=== PATIENT | male | born 1955 | race Caucasian/White ===

== ENCOUNTER → 2018-12-20 | Outpatient (CLI) | payer OTHER ==
[~2018-12-20] MED LIST: No meds per pt.
== END | disposition home or self-care (01) ==
LOC: STAR 14:42
PROVIDERS: ATTEND Thoracic Surgery (Cardiothoracic Vascular Surgery)
DX: Z01.818 Encounter for other preprocedural examination (principal); K40.90 Unilateral inguinal hernia, without obstruction or gangrene, not specified as recurrent; R00.1 Bradycardia, unspecified; I51.7 Cardiomegaly
CPT/HCPCS: 93005

== ENCOUNTER 2018-12-26 09:43 | Day surgery (SDC) | payer OTHER ==
[2018-12-20 14:40] VITALS: BP 139/84
[~2018-12-26] VITALS: Ht 171.4 cm; Wt 75.8 kg
[~2018-12-26 09:43] MED LIST changes: +BUPIVACAINE/PF 0.5% ONE; +EPINEPHRINE 1 MG/ML, 1ML ONE
[2018-12-26] MEDS ORDERED: LACTATED RINGERS 1,000 ML IV SCH ×2 (10:05→12:36)
[2018-12-26] MEDS ORDERED: FENTANYL PF 250 MCG/5ML ONE (11:17)
[2018-12-26] MEDS ORDERED: MIDAZOLAM 1 MG/ML, 2ML ONE (11:17)
[2018-12-26] MEDS ORDERED: ROCURONIUM 10 MG/ML,10ML ONE (11:54)
[2018-12-26] MEDS ORDERED: PROPOFOL 10 MG/ML, 20ML ONE (11:54)
[2018-12-26] MEDS ORDERED: ONDANSETRON 2MG/ML, 2ML ONE (11:54)
[2018-12-26] MEDS ORDERED: CEFAZOLIN 1,000 MG ONE (11:54)
[2018-12-26] MEDS ORDERED: DEXAMETHASONE 4 MG/ML, 1ML ONE (11:54)
[2018-12-26] MEDS ORDERED: METOCLOPRAMIDE 5 MG/ML, 2ML IV PRN (12:30)
[2018-12-26] MEDS ORDERED: LABETALOL 5MG/ML, 20ML IV PRN (12:30)
[2018-12-26] MEDS ORDERED: OXYcodone 5 MG/5 ML ORAL.SOL UDC PO PRN (12:30)
[2018-12-26] MEDS ORDERED: MEPERIDINE/PF 25MG/0.5ML IVPush PRN (12:30)
[2018-12-26] MEDS ORDERED: FENTANYL PF 100 MCG/2ML IV PRN (12:30)
[2018-12-26] MEDS ORDERED: HYDROmorphone 1 MG/ML, 1ML INJ IV PRN (12:30)
[2018-12-26] MEDS ORDERED: ONDANSETRON 2MG/ML, 2ML IVPush PRN ×2 (12:30→13:00)
[2018-12-26] MEDS ORDERED: PROMETHAZINE 25 MG/ML, 1ML IV PRN (12:30)
[2018-12-26] MEDS ORDERED: ALBUTEROL SULFATE 2.5 MG/3 ML NPPB PRN (12:30)
[2018-12-26] MEDS ORDERED: hydrALAzine 20 MG/ML, 1ML IV PRN (12:30)
[2018-12-26] MEDS ORDERED: KETOROLAC 30 MG/1 ML IV PRN (12:30)
[2018-12-26] MEDS ORDERED: KETOROLAC 30 MG/1 ML ONE (12:47)
[2018-12-26] MEDS ORDERED: OXYcodone 5 MG/5 ML ORAL.SOL UDC ONE (12:48)
[2018-12-26] MEDS ORDERED: HYDROcodone/APAP 5/325 TABLET PO PRN (13:00)
[2018-12-26] MEDS ORDERED: morphine SULFATE 10 MG/ML, 1ML IVPush PRN (13:00)
== END 2018-12-26 15:30 | disposition home or self-care (01) ==
LOC: OUT 09:43
PROVIDERS: ATTEND Thoracic Surgery (Cardiothoracic Vascular Surgery)
DX: K40.90 Unilateral inguinal hernia, without obstruction or gangrene, not specified as recurrent (principal); Z72.89 Other problems related to lifestyle; Z80.0 Family history of malignant neoplasm of digestive organs
CPT/HCPCS: 49650; C1781; J0171; J0690; J1100; J1885; J2250; J2405; J2704; J3010; J7120